=== PATIENT | male | born 1990 | race Hispanic/Latino ===

== ENCOUNTER 2024-10-18 20:23 | Emergency (ER) | payer SELFPAY ==
[2024-10-18 20:28] VITALS: BP 142/92
--- NOTE | 2024-10-18 22:17 | ED.GENMED ---
History of Present Illness
<Aguilar Woods DO, Resident - Last Filed: 10/18/24 23:00>
General
Chief Complaint: Back Pain
Source: patient
Time Seen by Provider: 10/18/24 22:15
History of Present Illness
History of Present Illness:
34-year-old male with no reported past medical history besides a hernia repair presents for back pain of 1 day duration. Patient reports that he was lifting things that were heavy at work and he developed acute onset right sided back pain. Patient
reports pain is worse with movement, there is slight pain that is worse with deep breaths. Patient denies any trauma. Patient also reports that he had an episode where he began experiencing lightheadedness and dizziness and fell, patient reports
he did not lose consciousness, did not strike his head. Of note history was slightly difficult to obtain, patient is a poor historian and there is a component of language barrier. Patient does speak Swedish enough to communicate.
Review of Systems
<Aguilar Woods DO, Resident - Last Filed: 10/18/24 23:00>
Review of Systems
Constitutional: Reports no symptoms; Denies fever
EENT: Reports other (Reports transient nosebleed this morning)
Respiratory: Reports trouble breathing (Pleuritic chest pain)
Cardiac: Reports no symptoms
ABD/GI: Reports no symptoms
Musculoskeletal: Reports back pain
Neurological: Reports dizzy
Phy Exam
<Aguilar Woods DO, Resident - Last Filed: 10/18/24 23:00>
General Physical Exam
General Presentation: well appearing and no apparent distress
General Skin: warm and dry
Cardiovascular Exam
Cardiovascular Exam: regular rate/rhythm, no edema and no murmur
Pulmonary Exam
Pulmonary Exam: lungs clear, no respiratory distress, no rales, no crackles, no rhonchi, no wheezing and no cough
Gastrointestinal Exam
Gastrointestinal Exam: non tender, soft and non distended
Musculoskeletal Exam
Musculoskeletal Exam: back tenderness (Paravertebral tenderness present at approximately mid thoracic. Tender to palpation. Pain reproducible with active movement. No vertebral point tenderness on exam)
Course
<Aguilar Woods DO, Resident - Last Filed: 10/18/24 23:00>
Orders/Labs/Results
Orders:
Orders
10/18/24 22:50
Ketorolac [Toradol] 30 mg IM NOW STA
Vital Signs
Initial and Last Documented VS:
Initial Vital Signs
Temp Pulse Resp BP Pulse Ox
36.8 C 74 18 142/92 99
10/18/24 20:28 10/18/24 20:28 10/18/24 20:28 10/18/24 20:28 10/18/24 20:28
Last Documented Vital Signs
Temp Pulse Resp BP Pulse Ox
36.8 C 74 18 142/92 99
10/18/24 20:28 10/18/24 20:28 10/18/24 20:28 10/18/24 20:28 10/18/24 20:28
<Brett Minaya DO - Last Filed: 10/18/24 23:11>
Orders/Labs/Results
Orders:
Orders
10/18/24 22:50
Ketorolac [Toradol] 30 mg IM NOW STA
Vital Signs
Initial and Last Documented VS:
Initial Vital Signs
Temp Pulse Resp BP Pulse Ox
36.8 C 74 18 142/92 99
10/18/24 20:28 10/18/24 20:28 10/18/24 20:28 10/18/24 20:28 10/18/24 20:28
Last Documented Vital Signs
Temp Pulse Resp BP Pulse Ox
36.8 C 74 18 142/92 99
10/18/24 20:28 10/18/24 20:28 10/18/24 20:28 10/18/24 20:28 10/18/24 20:28
<Aguilar Woods DO, Resident - Last Filed: 10/18/24 23:00>
MDM/Problems Addressed
Differential Diagnosis Includes:
Musculoskeletal strain, rib bruising,
MDM/Problems Addressed:
34 male past history of hernia repair presents for acute back pain after moving heavy objects at work.
Patient reports he did not have any trauma, the pain started suddenly and is worse with active torso movements. Patient reports the pain is paravertebral around mid thoracic on the right side. Patient reports no radiation.
Patient reports no red flag symptoms, no bowel or bladder incontinence, no bowel or bladder retention, no back pain worse at night, no perianal anesthesia.
Episode of fainting reported per EMS.
Patient does report 1 episode of lightheadedness and dizziness where he fell to the ground. Patient reports that he did not pass out, did not lose consciousness and did not strike his head. Patient was somewhat confused when I asking stating 'is
that what the ambulance told you?'
Constellation of symptoms are concerning for musculoskeletal strain. No point vertebral tenderness on exam
Patient satting 99% on room air, not tachycardic, afebrile, slightly hypertensive 142/90, not tachypneic
Patient has decreased active range of motion on exam to most movements involving the thoracic spine, decreased active range of motion to rotation, difficulty taking off sweatshirt. Believe decreased range of motion secondary to musculoskeletal pain
Will give one-time dose 30 mg IM Toradol
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 Encouraged use of [id number]-swr-[id number] Motrin on discharge, instructions provided to patient to use 600 to 800 mg every 8 hours as needed for pain with food
<Aguilar Woods DO, Resident - Last Filed: 10/18/24 23:00>
*Critical Care Note
Total Time (30-74mins, 75-104mins- exclusive of procedures): Not Applicable
ED Attending Note
<Aguilar Woods DO, Resident - Last Filed: 10/18/24 23:00>
-
Portions of this chart may have been created with voice recognition software.� Occasional wrong word or��sound alike� substitutions may have occurred due to the inherent limitations of voice recognition software.
<Brett Banks Rei, DO - Last Filed: 10/18/24 23:11>
ED Attending Note
Patient seen and examined by attending physician: Yes
I performed a history and physical exam of patient and discussed management with resident, I reviewed resident's note and agree with documented findings and plan of care.: Yes
ED Attending Note:
I evaluated the patient at bedside. The patient is very well-appearing. But does not feel somewhat uncomfortable
Discharge Plan
Departure
Patient Disposition: Home (Routine Discharge)
Date of Disposition: 10/18/24
Time of Disposition: 23:07
Patient with high blood pressure during this ER visit?: Yes
Condition: Good
Discharge Problem:
Musculoskeletal strain
Instructions: Upper Back Pain (DC), Back Muscle Strain, BLOOD PRESSURE
Referrals:
[facility] [Outside] - Call in 1-3 days for appt
Activity Restrictions/Additional Instructions:
Please follow-up with your primary care physician, call in 1 3 days for an appointment. If you do not have a PCP referral is provided for [place] [facility]
I recommend 3-4 jqdn-zxg-xrefxtr ibuprofen (Motrin) every 8 hours with food for a few days. Return here if worse. Do not use more than 800 mg in an 8-hour period
Please return to the emergency department if you notice any bowel or bladder incontinence, inability to urinate or defecate, numbness in your anal area, or any numbness/weakness in the legs
Eyal un seguimiento con salguero m�dico de atenci�n primaria, llame dentro de 1 a 3 d�as para programar vargas ashlie. Si no tiene un PCP, se le proporciona vargas derivaci�n a la cl�salvador de residencia de [place].
Recomiendo 3-4 ibuprofeno (Motrin) de venta xander cada 8 horas con la comida jonelle unos d�as. Vuelve aqu� si es peor. No utilice m�s de 800 mg en un per�odo de 8 horas.
Regrese al departamento de emergencias si nota cualquier incontinencia intestinal o vesical, incapacidad para orinar o defecar, entumecimiento en el �jere anal o cualquier entumecimiento/debilidad en las piernas.
Interventions
Interventions:
*Risk Screen - Suicide Last Done: 10/18/24 20:28
*General Assessment Last Done: 10/18/24 20:28
*Neglect/Abuse Screening Last Done: 10/18/24 20:28
*ED COVID-19 Vaccine History Last Done: 10/18/24 20:28
Discharge Date and Time
Print Language: AMHARIC
[2024-10-18] MEDS: TORADOL 30 MG IM (23:16)
[2024-10-18 23:22] VITALS: BP 109/78
== END 2024-10-18 23:23 | disposition home or self-care (01) ==
LOC: EMR 20:23
PROVIDERS: EMERGENCY PHYSICIAN Emergency Medicine
DX: M54.9 Dorsalgia, unspecified (principal); W19.XXXA Unspecified fall, initial encounter
CPT/HCPCS: 99282; 96372